=== PATIENT | female | born 1975 | race Caucasian/White ===

== ENCOUNTER 2017-01-09 07:45 | Emergency (ER) | payer OTHER ==
--- NOTE | 2017-01-09 08:13 | ED ORDER SUMMARY ---
..... Patient: MARIELLA PURDY OrderSheet Formerly [facility] VisitID: [id number] [place] [address] 41y, F Registration Date/Time: 01/09/2017 ORDER SHEET Weight: 73.9 kg (stated) Allergies: PCN GENERAL ORDERS: MEDICATION ORDERS: Prednisone PO 60 mg (NOW) (08:09 01/09/2017 Kandis PICKETT) (Ack 8:18 MWinterer R.N.) (8:23 MWinterer R.N.) Famotidine PO 40 mg (NOW) (08:10 01/09/2017 Kandis PICKETT) (Ack 8:18 MWinterer R.N.) (8:23 MWinterer R.N.) IV FLUIDS: ORDER SHEET NOTES: [Electronically signed by Malka Rosas R.N. (11:46 01/09/2017)] [Electronically signed by Fransisco Shaw MD (08:18 01/11/2017)] [Electronically locked/signed by Malka Rosas R.N. (11:46 01/09/2017)]
--- NOTE | 2017-01-09 08:13 | ED CLINICAL REPORT ---
Clinical Report - Physicians/Mid Levels [facility] [address] [place] [address] 01/09/2017 7:47 Patient: MARIELLA PURDY Time Seen: 08:05 Jan 09 2017. Arrived- By private vehicle. Historian- patient. CPT: ER phys charges level 3 (#[id number]). HISTORY OF PRESENT ILLNESS Chief Complaint: BITE (Multiple mosquito bites to both legs while in a dress at a wedding.). Location of injuries- right leg and right ankle and left leg and left ankle. The injury occurred yesterday. (N/A). (outdoor wedding). The patient has had itching. She has had a skin rash. 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 REVIEW OF SYSTEMS The patient has had swelling. No numbness, headache, difficulty breathing, weakness or tingling. No chest pain, nausea, fever, joint pain or enlarged lymph nodes. All systems otherwise negative, except as recorded above. PAST HISTORY See nurses notes. Spontaneous (Miscarriage). Dilation and curettage. Tetanus immunization status is up-to-date. Medications: None. Allergies: PCN. SOCIAL HISTORY Never smoker. Occasional alcohol use. History of drug use: cocaine. ADDITIONAL NOTES The nursing notes have been reviewed. PHYSICAL EXAM Vital Signs: 01/09/2017 07:55 BP: 144/100. HR: 71. RR: 17. O2 saturation: 98%. Temp: 97.7 F. Pain level now: 9/10. Appearance: Alert. Anxious. Patient in mild distress. Head: Head non-tender. Eyes: Eyes normal inspection. ENT: Ears normal on inspection. Nose normal on inspection. Mouth normal on inspection. Neck: Normal inspection. CVS: Heart sounds normal. Pulses normal. Respiratory: Breath sounds normal. Abdomen: Nontender. Back: Normal inspection. Skin: Moderate, papular, raised, urticarial skin rash located on the right leg and left leg. Neuro: Oriented X 3. No motor deficit. No sensory deficit. PROGRESS AND PROCEDURES Course of Care: Prednisone 60 mg po Famotadine 40 mg po Pt already took zyrtec 10 mg po at home. Patient is stable. Patient/family counseled. Disposition: Discharged. CLINICAL IMPRESSION Multiple mosquito bites to the right lower leg and left lower leg. Right. Left. INSTRUCTIONS (Caladryl lotion to legs.). Warnings: GENERAL WARNINGS: Return or contact your physician immediately if your condition worsens or changes unexpectedly, if not improving as expected, or if other problems arise. Prescription Medications: Zyrtec 10 mg: take 1 tablet orally every day as needed for allergies or itching. Dispense five (5). No refill. Prednisone 20 mg: take 3 orally every day for 5 days. Dispense fifteen (15). No refills. Famotidine 40 mg: take 1 orally at bedtime for 5 days. Dispense five (5). No refills. Follow-up: Follow up with your doctor in two days if not better. Understanding of the discharge instructions verbalized by patient. (Electronically signed by Fransisco Shaw MD 01/11/2017 8:18)
--- NOTE | 2017-01-09 08:13 | ED NURSING NOTES ---
Clinical Report - Nurses [facility] [address] [place] [address] 01/09/2017 7:47 Patient: MARIELLA PURDY TRIAGE Triage time 07:55. Acuity: LEVEL 5. Chief Complaint: RIGHT LOWER EXTREMITY REDNESS. LEFT LOWER EXTREMITY REDNESS. 07:56 01/09/17. 07:56 01/09/17. Alert. SEPSIS SCREEN: Sepsis Screen. Negative (no infection suspected/documented). ANIYA COMA SCORE: Wheeler Coma Scale: 15- eyes open spontaneously (4); best verbal response- oriented x 4 (5); best motor response- obeys commands (6). --08:00 Lamont Ivey R.N. 07:55 01/09/17. BP: 144/100. HR: 71. RR: 17. O2 saturation: 98% on room air. Temp: 97.7 F (oral). Pain level now: 04/02. --08:00 Lamont Ivey R.N. Weight: 73.9 kg stated. Height/Length: 70 inches Per Patient. BMI: 23.4. --07:55 Lamont Ivey R.N. Medications None. --07:56 Lamont Ivey R.N. Allergies PCN. --07:56 Lamont Ivey R.N. History Arrived by private vehicle, and accompanied by family. Primary physician ([facility]). 07:56 01/09/17. No injury occurred. This occurred (Monday during a wedding). Occurred (during a wedding). ( Possible insect bites to jagdish YANEZ). 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 PAST MEDICAL HX: Tetanus status: up-to-date. Immunizations: up-to-date. Last normal menstrual period- Ended Yesterday. Denies current . SOCIAL HX: Never smoker. Occasional alcohol use. History of occasional drug use: cocaine. No infectious disease exposure. ABUSE ASSESSMENT: No report of abuse. FALL RISK ASSESSMENT: Fall risk assessment completed. No fall risk identified. NUTRITIONAL RISK ASSESSMENT: The nutritional risk assessment revealed no deficiencies. FUNCTIONAL ASSESSMENT: Functional assessment: no impairments noted. LEARNING NEEDS ASSESSMENT: The learning needs assessment revealed no barriers. SKIN INTEGRITY ASSESSMENT: Skin integrity risk assessment completed. No skin integrity risk identified. --08:00 Lamont Ivey R.N. PROBLEMS: Spontaneous (Miscarriage). --07:57 Lamont Ivey R.N. ADDITIONAL SURGERIES: Dilation and curettage. --07:57 Lamont Ivey R.N. Assessment 07:56 01/09/17. --08:00 Lamont Ivey R.N. Interventions 07:56 01/09/17. 07:56 01/09/17. ID and allergy band on patient. To treatment room. --08:00 Lamont Ivey R.N. PHYSICAL ASSESSMENT 07:58 01/09/17. Ambulatory to room. GENERAL / NEURO / PSYCH: Oriented X 4. Alert. Appears in pain. EXTREMITIES: Extremity pulses are within normal limits. Neuro-vascular status intact to the extremity. No lower extremity edema. Normal gait. Right leg: erythema. Right ankle: erythema. Left leg: erythema. Left ankle: erythema. --07:58 Lamont Ivey R.N. NURSING PROGRESS NOTES 07:58 01/09/17. Two patient identifiers checked. Call light placed in reach. Side rails up x 2. Bed placed in lowest position. Brakes of bed on. Patient ready for evaluation- chart flagged and notification provided. --07:58 Lamont Ivey R.N. 08:18 01/09/2017 Prednisone PO 60 mg given. Allergies verified and confirmed 5 rights. --08:23 Malka Rosas R.N. 08:18 01/09/2017 Famotidine PO 40 mg given. Allergies verified and confirmed 5 rights. --08:23 Malka Rosas R.N. DISPOSITION / DISCHARGE Departure time: 08:Jan 09 2017. Condition at departure: unchanged and stable. No learning barriers present. Discharge instructions provided and reviewed with the patient. Reviewed medication(s) side effects, precautions, dosing and course information. Prescription(s) given to the patient. Patient verbalized understanding. Written instructions provided in Filipino. The patient was discharged by the physician. She was discharged home. She left the Emergency Department ambulatory and via private vehicle. Patient driving. --11:46 Malka Rosas R.N. Locked/Released at 01/09/2017 11:46 by Malka Rosas R.N.
--- NOTE | 2017-01-09 08:13 | ED ORDER SUMMARY ---
..... Patient: MARIELLA PURDY OrderSheet [facility] VisitID: [id number] [place] [address] 41y, F Registration Date/Time: 01/09/2017 ORDER SHEET Weight: 73.9 kg (stated) Allergies: PCN GENERAL ORDERS: MEDICATION ORDERS: Prednisone PO 60 mg (NOW) (08:09 01/09/2017 Kandis PICKETT) (Ack 8:18 MWinterer R.N.) (8:23 MWinterer R.N.) Famotidine PO 40 mg (NOW) (08:10 01/09/2017 Kandis PICKETT) (Ack 8:18 MWinterer R.N.) (8:23 MWinterer R.N.) IV FLUIDS: ORDER SHEET NOTES: [Electronically signed by Malka Rosas R.N. (11:46 01/09/2017)] [Electronically signed by Fransisco Shaw MD (08:18 01/11/2017)] [Electronically locked/signed by Malka Rosas R.N. (11:46 01/09/2017)]
--- NOTE | 2017-01-09 08:13 | ED NURSING NOTES ---
Clinical Report - Nurses [facility] [address] [place] [address] 01/09/2017 7:47 Patient: MARIELLA PURDY TRIAGE Triage time 07:55. Acuity: LEVEL 5. Chief Complaint: RIGHT LOWER EXTREMITY REDNESS. LEFT LOWER EXTREMITY REDNESS. 07:56 01/09/17. 07:56 01/09/17. Alert. SEPSIS SCREEN: Sepsis Screen. Negative (no infection suspected/documented). ANIYA COMA SCORE: Hitchcock Coma Scale: 15- eyes open spontaneously (4); best verbal response- oriented x 4 (5); best motor response- obeys commands (6). --08:00 Lamont Ivey R.N. 07:55 01/09/17. BP: 144/100. HR: 71. RR: 17. O2 saturation: 98% on room air. Temp: 97.7 F (oral). Pain level now: 04/02. --08:00 Lamont Ivey R.N. Weight: 73.9 kg stated. Height/Length: 70 inches Per Patient. BMI: 23.4. --07:55 Lamont Ivey R.N. Medications None. --07:56 Lamont Ivey R.N. Allergies PCN. --07:56 Lamont Ivey R.N. History Arrived by private vehicle, and accompanied by family. Primary physician ([facility]). 07:56 01/09/17. No injury occurred. This occurred (Monday during a wedding). Occurred (during a wedding). ( Possible insect bites to jagdish YANEZ). 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 PAST MEDICAL HX: Tetanus status: up-to-date. Immunizations: up-to-date. Last normal menstrual period- Ended Yesterday. Denies current . SOCIAL HX: Never smoker. Occasional alcohol use. History of occasional drug use: cocaine. No infectious disease exposure. ABUSE ASSESSMENT: No report of abuse. FALL RISK ASSESSMENT: Fall risk assessment completed. No fall risk identified. NUTRITIONAL RISK ASSESSMENT: The nutritional risk assessment revealed no deficiencies. FUNCTIONAL ASSESSMENT: Functional assessment: no impairments noted. LEARNING NEEDS ASSESSMENT: The learning needs assessment revealed no barriers. SKIN INTEGRITY ASSESSMENT: Skin integrity risk assessment completed. No skin integrity risk identified. --08:00 Lamont Ivey R.N. PROBLEMS: Spontaneous (Miscarriage). --07:57 Lamont Ivey R.N. ADDITIONAL SURGERIES: Dilation and curettage. --07:57 Lamont Ivey R.N. Assessment 07:56 01/09/17. --08:00 Lamont Ivey R.N. Interventions 07:56 01/09/17. 07:56 01/09/17. ID and allergy band on patient. To treatment room. --08:00 Lamont Ivey R.N. PHYSICAL ASSESSMENT 07:58 01/09/17. Ambulatory to room. GENERAL / NEURO / PSYCH: Oriented X 4. Alert. Appears in pain. EXTREMITIES: Extremity pulses are within normal limits. Neuro-vascular status intact to the extremity. No lower extremity edema. Normal gait. Right leg: erythema. Right ankle: erythema. Left leg: erythema. Left ankle: erythema. --07:58 Lamont Ivey R.N. NURSING PROGRESS NOTES 07:58 01/09/17. Two patient identifiers checked. Call light placed in reach. Side rails up x 2. Bed placed in lowest position. Brakes of bed on. Patient ready for evaluation- chart flagged and notification provided. --07:58 Lamont Ivey R.N. 08:18 01/09/2017 Prednisone PO 60 mg given. Allergies verified and confirmed 5 rights. --08:23 Malka Rosas R.N. 08:18 01/09/2017 Famotidine PO 40 mg given. Allergies verified and confirmed 5 rights. --08:23 Malka Rosas R.N. DISPOSITION / DISCHARGE Departure time: 08:Jan 09 2017. Condition at departure: unchanged and stable. No learning barriers present. Discharge instructions provided and reviewed with the patient. Reviewed medication(s) side effects, precautions, dosing and course information. Prescription(s) given to the patient. Patient verbalized understanding. Written instructions provided in Tunisian. The patient was discharged by the physician. She was discharged home. She left the Emergency Department ambulatory and via private vehicle. Patient driving. --11:46 Malka Rosas R.N. Locked/Released at 01/09/2017 11:46 by Malka Rosas R.N.
--- NOTE | 2017-01-09 08:13 | ED CLINICAL REPORT ---
Clinical Report - Physicians/Mid Levels [facility] [address] [place] [address] 01/09/2017 7:47 Patient: MARIELLA PURDY Time Seen: 08:05 Jan 09 2017. Arrived- By private vehicle. Historian- patient. CPT: ER phys charges level 3 (#[id number]). HISTORY OF PRESENT ILLNESS Chief Complaint: BITE (Multiple mosquito bites to both legs while in a dress at a wedding.). Location of injuries- right leg and right ankle and left leg and left ankle. The injury occurred yesterday. (N/A). (outdoor wedding). The patient has had itching. She has had a skin rash. 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 REVIEW OF SYSTEMS The patient has had swelling. No numbness, headache, difficulty breathing, weakness or tingling. No chest pain, nausea, fever, joint pain or enlarged lymph nodes. All systems otherwise negative, except as recorded above. PAST HISTORY See nurses notes. Spontaneous (Miscarriage). Dilation and curettage. Tetanus immunization status is up-to-date. Medications: None. Allergies: PCN. SOCIAL HISTORY Never smoker. Occasional alcohol use. History of drug use: cocaine. ADDITIONAL NOTES The nursing notes have been reviewed. PHYSICAL EXAM Vital Signs: 01/09/2017 07:55 BP: 144/100. HR: 71. RR: 17. O2 saturation: 98%. Temp: 97.7 F. Pain level now: 9/10. Appearance: Alert. Anxious. Patient in mild distress. Head: Head non-tender. Eyes: Eyes normal inspection. ENT: Ears normal on inspection. Nose normal on inspection. Mouth normal on inspection. Neck: Normal inspection. CVS: Heart sounds normal. Pulses normal. Respiratory: Breath sounds normal. Abdomen: Nontender. Back: Normal inspection. Skin: Moderate, papular, raised, urticarial skin rash located on the right leg and left leg. Neuro: Oriented X 3. No motor deficit. No sensory deficit. PROGRESS AND PROCEDURES Course of Care: Prednisone 60 mg po Famotadine 40 mg po Pt already took zyrtec 10 mg po at home. Patient is stable. Patient/family counseled. Disposition: Discharged. CLINICAL IMPRESSION Multiple mosquito bites to the right lower leg and left lower leg. Right. Left. INSTRUCTIONS (Caladryl lotion to legs.). Warnings: GENERAL WARNINGS: Return or contact your physician immediately if your condition worsens or changes unexpectedly, if not improving as expected, or if other problems arise. Prescription Medications: Zyrtec 10 mg: take 1 tablet orally every day as needed for allergies or itching. Dispense five (5). No refill. Prednisone 20 mg: take 3 orally every day for 5 days. Dispense fifteen (15). No refills. Famotidine 40 mg: take 1 orally at bedtime for 5 days. Dispense five (5). No refills. Follow-up: Follow up with your doctor in two days if not better. Understanding of the discharge instructions verbalized by patient. (Electronically signed by Fransisco Shaw MD 01/11/2017 8:18)
--- NOTE | 2017-01-11 08:19 | ED DISCHARGE INSTRUCTIONS ---
Patient: MARIELLA PURDY General Instructions [facility] VisitID: [id number] [place] [address] 41y, F Registration Date/Time: 01/09/2017 Multiple mosquito bites to the right lower leg and left lower leg. Right. Left. INSTRUCTIONS (Caladryl lotion to legs.). Warnings: GENERAL WARNINGS: Return or contact your physician immediately if your condition worsens or changes unexpectedly, if not improving as expected, or if other problems arise. Prescription Medications: Zyrtec 10 mg: take 1 tablet orally every day as needed for allergies or itching. Dispense five (5). No refill. Prednisone 20 mg: take 3 orally every day for 5 days. Dispense fifteen (15). No refills. Famotidine 40 mg: take 1 orally at bedtime for 5 days. Dispense five (5). No refills. Follow-up: Follow up with your doctor in two days if not better. Understanding of the discharge instructions verbalized by patient. ADDITIONAL INFORMATION Insect Sting Allergy,Generalized You are having an allergic reaction to an insect sting. This may occur after a sting by a wasp, honeybee, yellow jacket or other insect. This may cause an itchy rash and swelling in the face or other parts of the body. A more severe reaction may cause you to feel dizzy or faint or have trouble breathing or swallowing. Insect stings may also become infected 1-3 days later, so watch for the warning signs below. Home Care: Avoid tight clothing and things that heat up your skin (such as hot showers or baths, or direct sunlight). Heat makes the itching worse. An ice pack (ice cubes in a plastic bag, wrapped in a towel) will relieve local areas of intense itching and redness. Lanacaine cream or Solarcaine spray (or other product containing "benzocaine") will reduce the itching. Oral Benadryl (diphenhydramine) is an antihistamine available at drug and grocery stores. Unless a prescription antihistamine was given, Benadryl may be used to reduce itching if large areas of the skin are involved. Use lower doses during the daytime and higher doses at bedtime since the drug may make you sleepy. [NOTE: Do not use Benadryl if you have glaucoma or if you are a man with trouble urinating due to an enlarged prostate.] Claritin (loratadine) is an antihistamine that causes less drowsiness and is a good alternative for daytime use. You may use acetaminophen (Tylenol) or ibuprofen (Motrin, Advil) to control pain, unless another pain medicine was prescribed. [NOTE: If you have chronic liver or kidney disease or ever had a stomach ulcer or GI bleeding, talk with your doctor before using these medicines.] Preventing Future Reactions: Future reactions could be worse than this one, so try to avoid situations where you might be stung again. Be aware that honeybees nest in trees. Wasps and yellow jackets nest in the ground, trees or roof eaves. If you are stung by a honeybee a stinger will remain in your skin. Wasps, yellow jackets, hornets do not leave a stinger behind. In either case, move away from the nest area immediately to avoid more stings. (The stinger of a honeybee releases a substance that will attract other bees to you.) After you are safely away from the nest, remove the stinger as quickly as possible, by scraping it out with the edge of a dull knife or plastic card (credit card). Do not use a tweezer or your fingers, since that may squeeze more toxin from the stinger. After any sting, you may apply ice and take Benadryl or other antihistamine. If you develop any of the warning signs below, seek help immediately. If you are at high risk for another sting due to where you work or play, or if your reaction included dizziness, fainting or trouble breathing or swallowing, an Insect Allergy Kit or Epi-Pen may be prescribed. If not, ask your doctor for one and carry it with you when you are in a risk area. Learn how to use the device. If you begin to feel the symptoms of another reaction in the future, use the Epi-Pen to inject yourself, and then call 911. Don't wait until symptoms become severe. Follow Up with your doctor or this facility in the next two days if your symptoms do not continue to improve. Get Prompt Medical Attention if any of the following occur: Spreading areas of itching, redness or swelling New or worse swelling in the face, eyelids, lips, mouth, throat or tongue Trouble swallowing or breathing Dizziness, weakness or fainting Headache, fever, chills, muscle or joint aching, vomiting, Increased pain or swelling Fever of 100.4F (38C) or higher, or as directed by your healthcare provider Colored fluid draining from the wound Mosquito Bite You have been stung or bitten by a mosquito. Mosquitoes come in many sizes and colors. It is only the female mosquito that bites people. They need blood in order to lay their eggs. When a mosquito bites you, it is pushing a needle-like mouth part into your skin. Then it injects some saliva (spit) before sucking your blood. It is the mosquito saliva that causes the local reaction you are having. There may be redness, swelling and itching. Some people are more sensitive to mosquito bites than others and may get dizziness and weakness. Home Care: Wash the area with soap and water once a day. Watch for any signs of infection (below). If itching is a problem, you may use an [id number] anti-itch spray or cream (Lanacaine, sunburn sprays or any other medicine with benzocaine in it).You may also apply an ice pack (ice cubes in a plastic bag, wrapped in a towel) over the bite area for 20 minutes every few hours as needed for the relief of pain, itching or swelling. Oral Benadryl (diphenhydramine) is an antihistamine available at drug and grocery stores. Unless a prescription antihistamine was given, Benadryl may be used to reduce itching if there are multiple bites. Use lower doses during the daytime and higher doses at bedtime since the drug may make you sleepy. [NOTE: Do not use Benadryl if you have glaucoma or if you are a man with trouble urinating due to an enlarged prostate.] Claritin (loratidine) is an antihistamine that causes less drowsiness and is a good alternative for daytime use. You may use acetaminophen (Tylenol) or ibuprofen (Motrin, Advil) to control pain, unless another pain medicine was prescribed. [NOTE: If you have chronic liver or kidney disease or ever had a stomach ulcer or GI bleeding, talk with your doctor before using these medicines.] Avoiding Mosquito Bites These are things you can do to prevent mosquito bites: Avoid being outside when mosquitoes are most active (regional driver, late afternoon and early evening). If you are outdoors when mosquitoes are active, wear socks, long sleeves, long pants and use insect repellent. The most effective insect repellent is DEET (10-30%). Children should not use more than 10% strength. Do not use on infants and women. You can spray your clothing with a repellent containing DEET or permethrin. If you do this, you do not need to put repellent on the skin under clothing that has been sprayed. Mosquitoes lay their eggs in standing water. Remove breeding areas around your home. Dispose of cans, containers and tires that may collect water. Clear your roof gutters and be sure they drain properly. Keep window and door screens in good repair. Follow Up with your doctor or as advised by our staff. Get Prompt Medical Attention if any of the following occur: Shortness of breath or difficulty breathing Dizziness, weakness or fainting Headache, fever, chills, muscle or joint aching, vomiting New rash Signs of infection: Spreading redness Increased pain or swelling Fever of 100.4F (38C) or higher, or as directed by your healthcare provider Colored fluid draining from the wound Cetirizine Hydrochloride Oral tablet What is this medicine? CETIRIZINE (se TI ra jasson) is an antihistamine. This medicine is used to treat or prevent symptoms of allergies. It is also used to help reduce itchy skin rash and hives. How should I use this medicine? Take this medicine by mouth with a glass of water. Follow the directions on the prescription label. You can take this medicine with food or on an empty stomach. Take your medicine at regular times. Do not take more often than directed. You may need to take this medicine for several days before your symptoms improve. Talk to your machine adjuster leader case trim regarding the use of this medicine in children. Special care may be needed. While this drug may be prescribed for children as young as 6 years of age for selected conditions, precautions do apply. What side effects may I notice from receiving this medicine? Side effects that you should report to your doctor or health intensive care anaesthetist as soon as possible: allergic reactions like skin rash, itching or hives, swelling of the face, lips, or tongue changes in vision or hearing fast heartbeat high blood pressure infection trouble passing urine or change in the amount of urine Side effects that usually do not require medical attention (report to your doctor or health intensive care anaesthetist if they continue or are bothersome): irritability loss of sleep sore throat stomach pain swelling What may interact with this medicine? other medicines for colds or allergies theophylline What if I miss a dose? If you miss a dose, take it as soon as you can. If it is almost time for your next dose, take only that dose. Do not take double or extra doses. Where should I keep my medicine? Keep out of the reach of children. Store at room temperature between 15 and 30 degrees C (59 and 86 degrees F). Throw away any unused medicine after the expiration date. What should I tell my health care provider before I take this medicine? They need to know if you have any of these conditions: kidney disease liver disease an unusual or allergic reaction to cetirizine, hydroxyzine, other medicines, foods, dyes, or preservatives or trying to get breast-feeding What should I watch for while using this medicine? Visit your doctor or health intensive care anaesthetist for regular checks on your health. Tell your doctor if your symptoms do not improve. You may get drowsy or dizzy. Do not drive, use machinery, or do anything that needs mental alertness until you know how this medicine affects you. Do not stand or sit up quickly, especially if you are an older patient. This reduces the risk of dizzy or fainting spells. Your mouth may get dry. Chewing sugarless gum or sucking hard candy, and drinking plenty of water may help. Contact your doctor if the problem does not go away or is severe. Famotidine Oral tablet What is this medicine? FAMOTIDINE (fa YAKOV ti roque) is a type of antihistamine that blocks the release of stomach acid. It is used to treat stomach or intestinal ulcers. It can also relieve heartburn from acid reflux. How should I use this medicine? Take this medicine by mouth with a glass of water. Follow the directions on the prescription label. If you only take this medicine once a day, take it at bedtime. Take your doses at regular intervals. Do not take your medicine more often than directed. Talk to your machine adjuster leader case trim regarding the use of this medicine in children. Special care may be needed. What side effects may I notice from receiving this medicine? Side effects that you should report to your doctor or health intensive care anaesthetist as soon as possible: agitation, nervousness confusion hallucinations skin rash, itching Side effects that usually do not require medical attention (report to your doctor or health intensive care anaesthetist if they continue or are bothersome): constipation diarrhea dizziness headache What may interact with this medicine? delavirdine itraconazole ketoconazole What if I miss a dose? If you miss a dose, take it as soon as you can. If it is almost time for your next dose, take only that dose. Do not take double or extra doses. Where should I keep my medicine? Keep out of the reach of children. Store at room temperature between 15 and 30 degrees C (59 and 86 degrees F). Do not freeze. Throw away any unused medicine after the expiration date. What should I tell my health care provider before I take this medicine? They need to know if you have any of these conditions: kidney or liver disease trouble swallowing an unusual or allergic reaction to famotidine, other medicines, foods, dyes, or preservatives or trying to get breast-feeding What should I watch for while using this medicine? Tell your doctor or health intensive care anaesthetist if your condition does not start to get better or if it gets worse. Finish the full course of tablets prescribed, even if you feel better. Do not take with aspirin, ibuprofen or other antiinflammatory medicines. These can make your condition worse. Do not smoke cigarettes or drink alcohol. These cause irritation in your stomach and can increase the time it will take for ulcers to heal. If you get black, tarry stools or vomit up what looks like coffee grounds, call your doctor or health intensive care anaesthetist at once. You may have a bleeding ulcer. You have been given the following additional information: Allergic Reaction, Insect (General) Mosquito Bite Cetirizine Hydrochloride Oral tablet Famotidine Oral tablet (Electronically signed by Fransisco Shaw MD 01/11/2017 8:18)
--- NOTE | 2017-01-11 08:19 | ED MAR SUMMARY ---
..... Medication Administration Record [facility] [address] [place] [address] Patient: MARIELLA PURDY Visit ID: [id number] 41y, F Weight: 73.9 kg Height/Length: 70 in BMI: 23.4 ALLERGIES: PCN Given 08:01/09/2017 Malka Rosas RRafa Medication Administered: PREDNISONE [PO], Dose: 60 mg PO. Medication Ordered: Prednisone PO 60 mg (NOW). Given 08:01/09/2017 Malka Rosas RNoeN. Medication Administered: FAMOTIDINE [PO], Dose: 40 mg PO. Medication Ordered: Famotidine PO 40 mg (NOW).
--- NOTE | 2017-01-11 08:19 | ED DISCHARGE INSTRUCTIONS ---
Patient: MARIELLA PURDY General Instructions [facility] VisitID: [id number] [place] [address] 41y, F Registration Date/Time: 01/09/2017 Multiple mosquito bites to the right lower leg and left lower leg. Right. Left. INSTRUCTIONS (Caladryl lotion to legs.). Warnings: GENERAL WARNINGS: Return or contact your physician immediately if your condition worsens or changes unexpectedly, if not improving as expected, or if other problems arise. Prescription Medications: Zyrtec 10 mg: take 1 tablet orally every day as needed for allergies or itching. Dispense five (5). No refill. Prednisone 20 mg: take 3 orally every day for 5 days. Dispense fifteen (15). No refills. Famotidine 40 mg: take 1 orally at bedtime for 5 days. Dispense five (5). No refills. Follow-up: Follow up with your doctor in two days if not better. Understanding of the discharge instructions verbalized by patient. ADDITIONAL INFORMATION Insect Sting Allergy,Generalized You are having an allergic reaction to an insect sting. This may occur after a sting by a wasp, honeybee, yellow jacket or other insect. This may cause an itchy rash and swelling in the face or other parts of the body. A more severe reaction may cause you to feel dizzy or faint or have trouble breathing or swallowing. Insect stings may also become infected 1-3 days later, so watch for the warning signs below. Home Care: Avoid tight clothing and things that heat up your skin (such as hot showers or baths, or direct sunlight). Heat makes the itching worse. An ice pack (ice cubes in a plastic bag, wrapped in a towel) will relieve local areas of intense itching and redness. Lanacaine cream or Solarcaine spray (or other product containing "benzocaine") will reduce the itching. Oral Benadryl (diphenhydramine) is an antihistamine available at drug and grocery stores. Unless a prescription antihistamine was given, Benadryl may be used to reduce itching if large areas of the skin are involved. Use lower doses during the daytime and higher doses at bedtime since the drug may make you sleepy. [NOTE: Do not use Benadryl if you have glaucoma or if you are a man with trouble urinating due to an enlarged prostate.] Claritin (loratadine) is an antihistamine that causes less drowsiness and is a good alternative for daytime use. You may use acetaminophen (Tylenol) or ibuprofen (Motrin, Advil) to control pain, unless another pain medicine was prescribed. [NOTE: If you have chronic liver or kidney disease or ever had a stomach ulcer or GI bleeding, talk with your doctor before using these medicines.] Preventing Future Reactions: Future reactions could be worse than this one, so try to avoid situations where you might be stung again. Be aware that honeybees nest in trees. Wasps and yellow jackets nest in the ground, trees or roof eaves. If you are stung by a honeybee a stinger will remain in your skin. Wasps, yellow jackets, hornets do not leave a stinger behind. In either case, move away from the nest area immediately to avoid more stings. (The stinger of a honeybee releases a substance that will attract other bees to you.) After you are safely away from the nest, remove the stinger as quickly as possible, by scraping it out with the edge of a dull knife or plastic card (credit card). Do not use a tweezer or your fingers, since that may squeeze more toxin from the stinger. After any sting, you may apply ice and take Benadryl or other antihistamine. If you develop any of the warning signs below, seek help immediately. If you are at high risk for another sting due to where you work or play, or if your reaction included dizziness, fainting or trouble breathing or swallowing, an Insect Allergy Kit or Epi-Pen may be prescribed. If not, ask your doctor for one and carry it with you when you are in a risk area. Learn how to use the device. If you begin to feel the symptoms of another reaction in the future, use the Epi-Pen to inject yourself, and then call 911. Don't wait until symptoms become severe. Follow Up with your doctor or this facility in the next two days if your symptoms do not continue to improve. Get Prompt Medical Attention if any of the following occur: Spreading areas of itching, redness or swelling New or worse swelling in the face, eyelids, lips, mouth, throat or tongue Trouble swallowing or breathing Dizziness, weakness or fainting Headache, fever, chills, muscle or joint aching, vomiting, Increased pain or swelling Fever of 100.4F (38C) or higher, or as directed by your healthcare provider Colored fluid draining from the wound Mosquito Bite You have been stung or bitten by a mosquito. Mosquitoes come in many sizes and colors. It is only the female mosquito that bites people. They need blood in order to lay their eggs. When a mosquito bites you, it is pushing a needle-like mouth part into your skin. Then it injects some saliva (spit) before sucking your blood. It is the mosquito saliva that causes the local reaction you are having. There may be redness, swelling and itching. Some people are more sensitive to mosquito bites than others and may get dizziness and weakness. Home Care: Wash the area with soap and water once a day. Watch for any signs of infection (below). If itching is a problem, you may use an [id number] anti-itch spray or cream (Lanacaine, sunburn sprays or any other medicine with benzocaine in it).You may also apply an ice pack (ice cubes in a plastic bag, wrapped in a towel) over the bite area for 20 minutes every few hours as needed for the relief of pain, itching or swelling. Oral Benadryl (diphenhydramine) is an antihistamine available at drug and grocery stores. Unless a prescription antihistamine was given, Benadryl may be used to reduce itching if there are multiple bites. Use lower doses during the daytime and higher doses at bedtime since the drug may make you sleepy. [NOTE: Do not use Benadryl if you have glaucoma or if you are a man with trouble urinating due to an enlarged prostate.] Claritin (loratidine) is an antihistamine that causes less drowsiness and is a good alternative for daytime use. You may use acetaminophen (Tylenol) or ibuprofen (Motrin, Advil) to control pain, unless another pain medicine was prescribed. [NOTE: If you have chronic liver or kidney disease or ever had a stomach ulcer or GI bleeding, talk with your doctor before using these medicines.] Avoiding Mosquito Bites These are things you can do to prevent mosquito bites: Avoid being outside when mosquitoes are most active (senior internet sales consultant, late afternoon and early evening). If you are outdoors when mosquitoes are active, wear socks, long sleeves, long pants and use insect repellent. The most effective insect repellent is DEET (10-30%). Children should not use more than 10% strength. Do not use on infants and women. You can spray your clothing with a repellent containing DEET or permethrin. If you do this, you do not need to put repellent on the skin under clothing that has been sprayed. Mosquitoes lay their eggs in standing water. Remove breeding areas around your home. Dispose of cans, containers and tires that may collect water. Clear your roof gutters and be sure they drain properly. Keep window and door screens in good repair. Follow Up with your doctor or as advised by our staff. Get Prompt Medical Attention if any of the following occur: Shortness of breath or difficulty breathing Dizziness, weakness or fainting Headache, fever, chills, muscle or joint aching, vomiting New rash Signs of infection: Spreading redness Increased pain or swelling Fever of 100.4F (38C) or higher, or as directed by your healthcare provider Colored fluid draining from the wound Cetirizine Hydrochloride Oral tablet What is this medicine? CETIRIZINE (se TI ra jasson) is an antihistamine. This medicine is used to treat or prevent symptoms of allergies. It is also used to help reduce itchy skin rash and hives. How should I use this medicine? Take this medicine by mouth with a glass of water. Follow the directions on the prescription label. You can take this medicine with food or on an empty stomach. Take your medicine at regular times. Do not take more often than directed. You may need to take this medicine for several days before your symptoms improve. Talk to your power plant supervisor regarding the use of this medicine in children. Special care may be needed. While this drug may be prescribed for children as young as 6 years of age for selected conditions, precautions do apply. What side effects may I notice from receiving this medicine? Side effects that you should report to your doctor or health geriatric care manager as soon as possible: allergic reactions like skin rash, itching or hives, swelling of the face, lips, or tongue changes in vision or hearing fast heartbeat high blood pressure infection trouble passing urine or change in the amount of urine Side effects that usually do not require medical attention (report to your doctor or health geriatric care manager if they continue or are bothersome): irritability loss of sleep sore throat stomach pain swelling What may interact with this medicine? other medicines for colds or allergies theophylline What if I miss a dose? If you miss a dose, take it as soon as you can. If it is almost time for your next dose, take only that dose. Do not take double or extra doses. Where should I keep my medicine? Keep out of the reach of children. Store at room temperature between 15 and 30 degrees C (59 and 86 degrees F). Throw away any unused medicine after the expiration date. What should I tell my health care provider before I take this medicine? They need to know if you have any of these conditions: kidney disease liver disease an unusual or allergic reaction to cetirizine, hydroxyzine, other medicines, foods, dyes, or preservatives or trying to get breast-feeding What should I watch for while using this medicine? Visit your doctor or health geriatric care manager for regular checks on your health. Tell your doctor if your symptoms do not improve. You may get drowsy or dizzy. Do not drive, use machinery, or do anything that needs mental alertness until you know how this medicine affects you. Do not stand or sit up quickly, especially if you are an older patient. This reduces the risk of dizzy or fainting spells. Your mouth may get dry. Chewing sugarless gum or sucking hard candy, and drinking plenty of water may help. Contact your doctor if the problem does not go away or is severe. Famotidine Oral tablet What is this medicine? FAMOTIDINE (fa YAKOV ti roque) is a type of antihistamine that blocks the release of stomach acid. It is used to treat stomach or intestinal ulcers. It can also relieve heartburn from acid reflux. How should I use this medicine? Take this medicine by mouth with a glass of water. Follow the directions on the prescription label. If you only take this medicine once a day, take it at bedtime. Take your doses at regular intervals. Do not take your medicine more often than directed. Talk to your power plant supervisor regarding the use of this medicine in children. Special care may be needed. What side effects may I notice from receiving this medicine? Side effects that you should report to your doctor or health geriatric care manager as soon as possible: agitation, nervousness confusion hallucinations skin rash, itching Side effects that usually do not require medical attention (report to your doctor or health geriatric care manager if they continue or are bothersome): constipation diarrhea dizziness headache What may interact with this medicine? delavirdine itraconazole ketoconazole What if I miss a dose? If you miss a dose, take it as soon as you can. If it is almost time for your next dose, take only that dose. Do not take double or extra doses. Where should I keep my medicine? Keep out of the reach of children. Store at room temperature between 15 and 30 degrees C (59 and 86 degrees F). Do not freeze. Throw away any unused medicine after the expiration date. What should I tell my health care provider before I take this medicine? They need to know if you have any of these conditions: kidney or liver disease trouble swallowing an unusual or allergic reaction to famotidine, other medicines, foods, dyes, or preservatives or trying to get breast-feeding What should I watch for while using this medicine? Tell your doctor or health geriatric care manager if your condition does not start to get better or if it gets worse. Finish the full course of tablets prescribed, even if you feel better. Do not take with aspirin, ibuprofen or other antiinflammatory medicines. These can make your condition worse. Do not smoke cigarettes or drink alcohol. These cause irritation in your stomach and can increase the time it will take for ulcers to heal. If you get black, tarry stools or vomit up what looks like coffee grounds, call your doctor or health geriatric care manager at once. You may have a bleeding ulcer. You have been given the following additional information: Allergic Reaction, Insect (General) Mosquito Bite Cetirizine Hydrochloride Oral tablet Famotidine Oral tablet (Electronically signed by Fransisco Shaw MD 01/11/2017 8:18)
--- NOTE | 2017-01-11 08:19 | ED MED RECONCILIATION SUMMARY ---
Patient: MARIELLA PURDY Medication Reconciliation Report [facility] VisitID: [id number] [place] [address] 41y, F Registration Date/Time: 01/09/2017 Weight: 73.9 kg Height/Length: 70 in. BMI: 23.4 ALLERGIES: PCN The patient's Home Medications are listed below: NONE. The source(s) of the original Home Medication information: Not obtained. The following Medications were given to the patient in the Emergency Department: Prednisone [PO] PO 60 mg, administered: 01/09/2017 8:18:00 AM Famotidine [PO] PO 40 mg, administered: 01/09/2017 8:18:00 AM The following Medications were prescribed to the patient: Zyrtec 10 mg: take 1 tablet orally every day as needed for allergies or itching. Dispense five (5). No refill. -- Fransisco Shaw MD Prednisone 20 mg: take 3 orally every day for 5 days. Dispense fifteen (15). No refills. -- Fransisco Shaw MD Famotidine 40 mg: take 1 orally at bedtime for 5 days. Dispense five (5). No refills. -- Fransisco Shaw MD
--- NOTE | 2017-01-11 08:19 | ED MAR SUMMARY ---
..... Medication Administration Record [facility] [address] [place] [address] Patient: MARIELLA PURDY Visit ID: [id number] 41y, F Weight: 73.9 kg Height/Length: 70 in BMI: 23.4 ALLERGIES: PCN Given 08:01/09/2017 Malak Rosas RRafa Medication Administered: PREDNISONE [PO], Dose: 60 mg PO. Medication Ordered: Prednisone PO 60 mg (NOW). Given 08:01/09/2017 Malka Rosas RNoeN. Medication Administered: FAMOTIDINE [PO], Dose: 40 mg PO. Medication Ordered: Famotidine PO 40 mg (NOW).
--- NOTE | 2017-01-11 08:19 | ED MED RECONCILIATION SUMMARY ---
Patient: MARIELLA PURDY Medication Reconciliation Report [facility] VisitID: [id number] [place] [address] 41y, F Registration Date/Time: 01/09/2017 Weight: 73.9 kg Height/Length: 70 in. BMI: 23.4 ALLERGIES: PCN The patient's Home Medications are listed below: NONE. The source(s) of the original Home Medication information: Not obtained. The following Medications were given to the patient in the Emergency Department: Prednisone [PO] PO 60 mg, administered: 01/09/2017 8:18:00 AM Famotidine [PO] PO 40 mg, administered: 01/09/2017 8:18:00 AM The following Medications were prescribed to the patient: Zyrtec 10 mg: take 1 tablet orally every day as needed for allergies or itching. Dispense five (5). No refill. -- Fransisco Shaw MD Prednisone 20 mg: take 3 orally every day for 5 days. Dispense fifteen (15). No refills. -- Fransisco Shaw MD Famotidine 40 mg: take 1 orally at bedtime for 5 days. Dispense five (5). No refills. -- Fransisco Shaw MD
== END 2017-01-09 08:20 | disposition home or self-care (01) ==
LOC: ED SRH 07:45
DX: S80.861A Insect bite (nonvenomous), right lower leg, initial encounter (principal); S80.862A Insect bite (nonvenomous), left lower leg, initial encounter; W57.XXXA Bitten or stung by nonvenomous insect and other nonvenomous arthropods, initial encounter; Y93.9 Activity, unspecified; Y99.9 Unspecified external cause status; Y92.89 Other specified places as the place of occurrence of the external cause; Z88.0 Allergy status to penicillin